=== PATIENT | female | born 1960 | race Caucasian/White ===

== ENCOUNTER 2024-01-04 14:04 | Outpatient (CLI) | payer OTHER, SELFPAY ==
--- NOTE | ~2024-01-04 | CT_ITS ---
EXAMINATION: CT abdomen pelvis wo con DATE: 01/04/2024 15:04 INDICATION: Rectal pain TECHNIQUE: Computed tomography (CT) of the abdomen and pelvis was performed without intravenous contr ast. Automated exposure control and iterative reconstruction technique were employed. The dose-length product was 357.46 mGy-cm. COMPARISON: None. FINDINGS: Lower thorax: Unremarkable Liver: Normal. Biliary/Gallbladder: Gallbladder is absent. Intra and extrahepatic bile duct dilation. The common amya t measures up to 2.2 cm. Pancreas: No mass or duct dilation. Spleen: Normal. Adrenals:No mass. Kidneys: No suspicious mass, obstructing stone, or hydronephrosis. GI tract: No small or large bowel dilation. Large volume of colonic fecal material. Appendix not visu alized. Mesentery/Peritoneum: No ascites, mass, or free air. Retroperitoneum: No mass. Pelvis: Uterus and ovaries not visualized. Normal urinary bladder. Soft Tissues: Soft tissues and body wall unremarkable. Left lower abdominal wall surgical clips. Bones: No acute osseous finding. Interbody devices at L4-5 and L5-S1. Laminectomy defects at L4 and L5. Paravertebral surgical clips. IMPRESSION: Marked intra and extrahepatic bile duct dilation, could represent chronic dilation versus acute obstr uction. Correlate with biliary labs. Comparison to outside studies would be helpful. Otherwise, consi tommy MRCP, particularly if biliary labs are abnormal. Large volume of colonic fecal material, correlate for clinical findings of constipation. Reviewed, dictated and finalized at [facility] [place]. IMPRESSION: Marked intra and extrahepatic bile duct dilation, could represent chronic dilat ion versus acute obstruction. Correlate with biliary labs. Comparison to outsid e studies would be helpful. Otherwise, consider MRCP, particularly if biliary l abs are abnormal. Large volume of colonic fecal material, correlate for clinical findings of cons tipation.
== END 2024-01-04 14:05 | disposition home or self-care (01) ==
LOC: ANHIMG 14:08
PROVIDERS: PCP Internal Medicine; Visit Provider Internal Medicine Gastroenterology
DX: K62.89 Other specified diseases of anus and rectum (principal); K83.8 Other specified diseases of biliary tract
CPT/HCPCS: 74176

== ENCOUNTER 2024-09-16 11:15 | Outpatient (RCR) | payer OTHER, SELFPAY ==
--- NOTE | 2024-08-30 14:27 | OPREHPOC ---
Outpatient Therapy Plan of Care This is a Multidisciplinary Plan of Care that may contain components documented by all disciplines (PT, OT, and ST.) PT Problem 1 PT Problem #1 Knowledge Deficit PT Goal 1 Goal / Goal Update 1. Patient will perform independent HEP Target Visit 2 PT Problem 2 PT Problem #2 Pain PT Goal 1 Goal / Goal Update 1. Patient will report perianal pain 5/10 highest 2. Patient will be able to walk her dog without being limited by pain Target Visit 4 PT Problem 3 PT Problem #3 Impaired Functional ADLs PT Goal 1 Goal / Goal Update 1. Patient will void no more than 10 times a day and 1 time at night 2. Patient able to hold at least 30 minutes before voiding Target Visit 4
--- NOTE | 2024-08-30 14:27 | PTOPEVAL1 ---
Assessment and note entered by Michelle Ingram DPT Evaluation Information Assessment Status Evaluation Diagnosis k62.89 ICD-10 Condition Codes (PT) Weakness R53.1,Pelvic and perineal pain R10.2 Subjective Information Pt has a diagnosis of anal pain and has a history of chronic constipation. Significant pain started back in January. Has been diagnosed with anal fissures and states she is noticing a lot of pelvic edema. Unsure if the current anal fissures will be surgically repaired (has had that done in the past). Tried Botox injections in May. Does sitz baths multiple times a day. Has to hold perineal pressure to have BM. Voids every 5 minutes and is up 6-7 times at night. Unable to hold urge to void more than a few seconds. No pain with urination. Typically is not getting urinary incontinence, 1 time recently with a sneeze. BM twice a day with soft stool, denies pain with BM. Does not hold urge for BM at all and does not get fecal incontinence. Pain is constantly 10/10, uses ice packs a lot and is hardly doing any activities. Patient states she cannot even walk her small dog. Pt is not sexually active but previously has had pain with intercourse. Pt had 1 and delivery with vaginal delivery and episiotomy, no other complications. Complete hysterectomy in . Pt has IBS and diverticulitis. Patient goal: not pee as frequently and reduce pain. Returns to [facility] later this month. Reported Pain Level Pain Score 10: Self Report Assessment PT Clinical Summary The patient is presenting to skilled therapy with extensive history of anal pain. She also reports significantly increased urinary frequency and difficulty holding urge to void. She presents with decreased pelvic floor strength and endurance which are contributing to her symptoms. The patient is limited with nearly all activities at home due to her pain. She will highly benefit from skilled therapy to address these impairments in order to reduce pain and urination and restore function. Plan of Care Interventions Electrical Stimulation,Gait Training,Hot Pack/Cold Pack,Manual Therapy,Neuro Re-education,Patient/ Caregiver Education,Therapeutic Activities, Therapeutic Exercise PT Services Indicated Yes Treatment Frequency and 1 time a week for 4 visits Duration These treatments will address the objective and functional deficits as defined above. The patient will be advanced safely and appropriately in order for the patient to progress towards his/her prior level of function. Additional exercises will be introduced and as well as a comprehensive home exercise program upon discharge, if needed, ?to ensure carryover of functional gains achieved in the clinic. This treatment plan has been reviewed and agreement upon by the patient.
--- NOTE | 2024-09-28 10:06 | PCPTNOTE ---
Patient called appointment 09/28/24 in preparation for surgery 10/04/24.
--- NOTE | 2024-10-11 13:11 | PTOPDC ---
Assessment and note entered by Michelle Ingram DPT Evaluation Information Assessment Status Discharge - Pt Not Present Diagnosis k62.89 ICD-10 Condition Codes (PT) Weakness R53.1,Pelvic and perineal pain R10.2 Subjective Information - Assessment PT Clinical Summary Patient is scheduled to have surgery. Her case will be discharged this date. Plan of Care PT Services Indicated No
== END 2024-10-11 16:51 | disposition home or self-care (01) ==
LOC: ANHPT 11:15
PROVIDERS: PCP Internal Medicine
DX: K62.89 Other specified diseases of anus and rectum (principal)
CPT/HCPCS: 97014; 97112; 97140; 97162; 97530; G0283

== ENCOUNTER 2025-01-25 20:50 | Emergency (ER) | payer OTHER, SELFPAY ==
--- OUTSIDE RECORDS SUMMARY | 2025-01-18 04:55 | XMS_ITS | Continuity of Care Document ---
Author Organization [employer] [place] Address [address] [place] [address] Phone Care Team Providers Care Promotion Manager Name Role Phone Annamarie Gonzalez DO Unavailable Unavailable Allergies, Adverse Reactions, Alerts Substance Reaction Status Criticality duloxetine Active No Information DULOXETINE HCL Fatigue Active No Informatio n oxaprozin Nausea / Vomiting Active No Informa tion PENICILLIN V POTASSIUM Active No In formation naproxen Active No Information Iodinated Contrast Media Active No Information adhesive Active No Information nalbuphine Active No Information ampicillin Active No Information PENICILLIN Active No Information Medications Medication Instructions Dosage Effective Dates (start - stop) Status Comments albuterol sulfate HFA 90 mcg/actuation aerosol inhaler inhale 2 puff by inhalation route every 4 - 6 hours as needed 180 MCG - Active Levothyroxine Sodium 75 MCG Oral Tablet TAKE 1 TABLET BY MOUTH ONCE DAILY ON AN EMPTY STOMACH 30 MINUTES BEFORE BREAKFAST - Active tiZANidine HCl 2 MG Oral Tablet TAKE 1 TO 2 TABLETS BY MOUTH EVERY 8 HOURS NEEDED NOT TO EXCEED 3 DOSES IN 24 HOURS - Active Simvastatin 20 MG Oral Tablet TAKE 1 TABLET BY MOUTH ONCE DAILY IN THE EVENING - Active gabapentin 100 mg capsule TAKE 1 TO 3 CAPSULES BY MOUTH ONCE DAILY AT BEDTIME - Active zolpidem 10 mg tablet TAKE 1 TABLET BY MOUTH ONCE DAILY AT BEDTIME - Active Miralax 17 gram/dose oral powder take (17G) by oral route every day mixed with 8 oz. water, juice, soda, coffee or tea 17 G - Active amlodipine 5 mg tablet take 1 tablet by oral route every day 5 MG - Active Ibsrela 50 mg tablet take 1 tablet by or al route 2 times every day 50 MG - Active Stool Softener 100 mg capsule take 1 capsule by oral route every day at bedtime as needed 100 MG - Active sumatriptan 25 mg tablet take 1 tablet by oral route once with fluids as early as possible after the onset of a migraine attack;may repeat after 2 hours if headache returns, not to exceed 200mgin 24hrs 25 MG - Active Xtampza ER 13.5 mg capsule sprinkle take 1 capsule by oral route every 12 hours 13.5 MG - Active Procedures Procedure Date OFFICE [id number] MED LIST DOCD IN RD CBC, INC PLATELETS AND DIFFERENTIAL COMPREHEN METABOLIC PANEL [facility] [address] 5 CREATINE KINASE, TOTAL (CPK,CK) 025 HEMOGLOBIN A1C HGA1C, GLYCO LIPID PANEL RBC SED RATE, AUTOMATED THYROID STIMULATION HORMONE(TSH) 2024 FALL RISK ASSESSMENT DOC'D PRES/ABSN URINE INCON ASSESS Depression screen annual Clin depression screen doc Brief Emotional/Behavioral A ssessment, With Scoring/Doct, Per Stndrd Instrument URINALYSIS, DIPSTICK (UA) - Office Lab M ROUTINE VENIPUNCTURE NE PREVENTATIVE-EST: 65 & OVER BODY MASS INDEX DOCD SYST BP LT 130 MM HG DIAST BP < 80 MM HG CBC, INC PLATELETS AND DIFFERENTIAL COMPREHEN METABOLIC PANEL [facility] [address] 4 HEMOGLOBIN A1C HGA1C, GLYCO THYROID STIMULATION HORMONE(TSH) 2023 FERRITIN LEVEL URINALYSIS, DIPSTICK (UA) - Office Lab O ROUTINE VENIPUNCTURE NE OFFICE [id number] Visit Complexity Inherent To E/M 2023 BODY MASS INDEX DOCD SYST BP GE 130 - 139MM HG DIAST BP < 80 MM HG OFFICE [id number] Visit Complexity Inherent To E/M 2023 BODY MASS INDEX DOCD SYST BP LT 130 MM HG DIAST BP < 80 MM HG CBC, INC PLATELETS AND DIFFERENTIAL COMPREHEN METABOLIC PANEL CMP HEMOGLOBIN A1C HGA1C, GLYCO LIPID PANEL THYROID STIMULATION HORMONE(TSH) 2023 URINALYSIS, REFLEX (UA) FREE T4 (FT4) Brief Emotional/Behavioral A ssessment, With Scoring/Doct, Per Stndrd Instrument Depression screen annual Clin depression screen doc ROUTINE VENIPUNCTURE [place] OFFICE [id number] BODY MASS INDEX DOCD SYST BP GE 130 - 139MM HG DIAST BP < 80 MM HG URINALYSIS, DIPSTICK (UA) - Office Lab M Advance Directives Directive Yes / No Effective Date File Name Life Support Not Answered N/A N/A Intubation Not Answered N/A N/A Antibiotics Not Answered N/A N/A IV Fluid Support Not Answered N/A N/A Tube Feed Not Answered N/A N/A Other Directive N/A N/A WARNING:The information contained in this section is historical and is provided for information only and does not constitute a legal document or any assurance that the information is still accurate. Please verify the information with the sanchez of the legal document before using it for clinical purposes. Encounters Encounter Description Practice Location Reason(s) For Visit Diagnoses Date Provider Providers Copied on Encounter [facility] [address] [place], [address], [place], [place], [id number] , [place] tel: [phone] [facility] No Information 5 Glen Annamarie. [address] [place] [address], [id number] , [place]. tel: [phone] [facility], [address], [place], [place], [address] , [place] tel:[phone] [facility] No Information - 5 Carlos Annamarie. [address] [place] [address], [id number] , [place]. tel: [phone] [facility], [address], [place], [place], [address] , [place] tel: [phone] [facility] No Information 5 Carlos Annamarie. [address] [place] [address], [id number] , [place]. tel: [phone] [facility], [address], [place], [place], [address] , [place] tel:[phone] [facility] No Information 5 Alli Gaylin. [address] [place] [address], [address], [place]. tel: [phone] [facility], [address], [place], [place], [address] , [place] tel: [facility] No Information - 5 Glen Annamarie. [address] [place] [address], [id number] , [place]. tel: [phone] [facility], [address], [place], [place], [id number] , [place] tel: [phone] [facility] No Information 0 9- 5 Glen Annamarie. [address] [place] [address], [id number] , [place]. tel: [phone] [facility], [address], [place], [address] , tel: [phone] [facility] No Information 5 Carlos De Luna. [address] [place] [address], [id number] , [place]. tel: [phone] OFFICE [id number]-UKA-VJ PANDED [facility], [address], [place], [place], [address] , tel: [phone] [facility] Other specified diseases of anus and rectum Jul- 5 Staton Sowmya. [address] [place] [address], [id number] , [place]. tel: [phone] Referring Provider: Annamarie Jasmine, [address] [place] [address], [address] . tel:[phone] [facility] [address], [address], [place], [place], [address] , tel: [phone] [facility] No Information 5 Hernán Montero. [address] [address], [place], [place], [id number] , . tel: [phone] Referring Provider: Annamarie Jasmine, [address] [place] [address], [address] . tel:[phone] PREVENTATIVE -EST: 65 & OVER [facility], [address], [place], [place], [address] , tel: [phone] [facility] 3 month appt (chief complaint)c hronic conditions (chief complaint)p reventive exam (chief complaint)C hronic Conditions (chief complaint) Body mass index [BMI] 26.0-26.9, adultEncntr for general adult medical exam w/o abnormal findingsImpaired fasting glucoseEssential (primary) hypertensionOther hyperlipidemiaMajo r depressive disorder, recurrent, moderateHypothyroi dism, unspecifiedOther specified diseases of anus and rectumLocalized edemaLeukocytes in urine 5 Carlos De Luna. [address] [place] [address], [id number] , [place]. tel: [phone] Referring Provider: Annamarie Jasmine, [address] [place] [address], [address] . tel:[phone] [facility], [address], [place], [place], [address] , [place] tel: [phone] [facility] No Information 5 Carlos De Luna. [address] [place] [address], [id number] , [place]. tel: [phone] [facility] [address], [address], [place], [place], [address] , [place] tel: [phone] [facility] No Information 4 Hernán Montero. [address], [id number] , . tel: [phone] Referring Provider: Emory Carson, [address] [place] [address], [address]. tel:[phone] OFFICE [id number]-GV [facility], [address], [place], [place], [id number] , [place] tel: [phone] [facility] 4 month (chief complaint)C hronic Conditions (chief complaint)c hronic conditions (chief complaint) Major depressive disorder, recurrent, moderateLow back pain, unspecifiedOther hyperlipidemiaInso mnia, unspecifiedEssenti al (primary) hypertensionImpair ed fasting glucoseRectal painVaginal painDilated bile ductRLS (restless legs syndrome) 4 Alli Cat. [address] [place] [address], [address], [place]. tel: [phone] Referring Provider: Annamarie Jasmine, [address] [place] [address], [address] . tel:[phone] [facility], [address], [place], [place], [address] , [place] tel: [phone] [facility] Internal hemorrhoids 4 Carlos De Luna. [address] [place] [address], [id number] , [place]. tel: [phone] [id number], [address], [place], [place], [id number] , [place] tel: [phone] [facility] 1 Month (chief complaint)C hronic Conditions (chief complaint) Body mass index [BMI] 25.0-25.9, adultLow back pain, unspecifiedMajor depressive disorder, recurrent, moderateGeneralize d anxiety disorderEssential (primary) hypertensionInsomn ia, unspecifiedFemale genital prolapse, unspecified typePersonal history of other endocrine, nutritional and metabolic disease 4 Alli Cat. [address] [place] [address], [address], [place]. tel: [phone] Referring Provider: Annamarie Jasmine, [address] [place] [address], [address] . tel:[phone] [facility], [address], [place], [place], [id number] , [place] tel: [phone] [facility] Female genital prolapse, unspecified type 4 Alli Cat. [address] [place] [address], [address], [place]. tel: [phone] [facility] [address], [address], [place], [id number] , [place] tel: [phone] [facility] Essential (primary) hypertensionHypoth yroidism, unspecifiedGeneral ized anxiety disorderImpaired fasting glucose 4 Hernán Montero. [address] [address], [place], [place], [id number] , [place]. tel: [phone] Referring Provider: Emory Carson, [address] [place] [address], [place], [address]. tel:[phone] OFFICE [id number]-[id number]-MD MP-HIGH [facility], [address], [place], [place], [address] , tel: [phone] [facility] [place] New pt (chief complaint)C hronic Conditions (chief complaint) Body mass index [BMI] 25.0-25.9, adultEssential hypertensionAcquir ed hypothyroidismHype rlipidemia, unspecified hyperlipidemia typeOther insomniaEncounter for weight managementChronic midline low back pain, unspecified whether sciatica presentOther chronic painMigraine with aura and without status migrainosus, not intractableModerat e major depressionGAD (generalized anxiety disorder)Impaired fasting glucosePain with urinationHistory of obesity 0 6- 4 Alli Cat. [address] [place] [address], [address], . tel: [phone] Referring Provider: Annamarie Jasmine, [address] [place] [address], [address] . tel:[phone] [facility], [address], [place], [place], [address] , tel: [phone] [facility] Valentina Urinary frequencyUrinary urgencyBurning with urination 0 4 Carlos De Luna. [address] [place] [address], [id number] , [place]. tel: [phone] Referring Provider: Annamarie Jasmine, [address] [place] [address], [address] . tel:[phone] Family History Family Member Type Diagnosis Age At Onset Mother Problem Diabetes mellitus Mother Problem Cardiovascular disease Father Problem Stroke Problem Family history of Irritable bowel syndrome Mother Problem Cancer, lung Mother Problem Migraine headaches Father Problem Cardiovascular disease Mother Problem Depression Mother Problem Asthma Father Problem Depression Problem Family history of Arthritis Father Problem Hypercholesterolemia Sister Problem Depression Problem Family history of Diabetes m ellitus Mother Problem Eczema Father Problem Learning disability Sister Problem Eczema Sister Problem Obesity Problem Family history of Stroke Mother Problem Hypertension Immunizations Vaccine Date Status Comments Moderna (Bivalent Booster) C OVID Vac, 50mgc/0.5 mL, 18+ years administered Note: [facility] ; Source: Other Provider Moderna (Low Dose) COVID19 Vaccine, 0.25mL per dose, booster dose administered Note: [facility] ; Source: Other Provider Moderna COVID19 Vaccine, 0.5 mL per dose, 2 doses, administered 28 days apart administered Note: [facility] ; Source: Other Provider Moderna COVID19 Vaccine, 0.5 mL per dose, 2 doses, administered 28 days apart administered Note: [facility] ; Source: Other Provider Payers Payer name Insurance type Covered constitution party ID Nasir gan(s) [employer] [id number] Social History Type Description Quantity Date Captured Comments Alcohol Use Details Unknown Caffeine Use Details Unknown Tobacco Use Status No Information Smoking Status No Information Sex Female Sexual Orientation Straight or heterosexual Gender Identity Female Chief Complaint And Reason For Visit No Information Reason For Referral Reason For Referral No Information Plan Of Treatment Date Type Action Status Goal Dietary management education , guidance, and counseling completed Goal Dietary management education , guidance, and counseling completed Goal Dietary management education , guidance, and counseling completed Referral Referred To: Sara Kelley [facility] [address] [place], [phone] Ordered: Referrals: Gastroenterology. Sara Kelley. Evaluation/diagnostic/treatment - Level 3 ordered Referral Referred To: Chris Andrea [id number], [phone] Ordered: Referrals: Urology. Chris Andrea. Evaluation/diagnostic/treatment - Level 3 Appointment date/timeframe: 01/20/2024 ordered History Of Present Illness Encounter Date Complaint History Of Prese nt Illness preventive exam Associated sympt oms include sleep disturbances. Patient does not take calcium. Patient does not take Vitamin D. Patient does not take multivitamins. Patient does not take Folic acid. The patient no longer uses tobacco. The patient does drink alcohol. 3 month appt pt due for:Fall risk/urinary incontinence information provided to patient Adv care planning - pt will bring copy of LW/POAColonoscopy - done with Dr Kelley on one density - pt denies recentpt needs Yearly physical exam before August 2024.Recent visits:Dr Kelley - Dr Mcgarry - [facility] - 3 weeks agoDr Rashid - GI - FebFuture appt:Lizzy Barreto - pain management - MarchVaccinations due:COVID - see scanned vaccine recordCOVID booster - see scanned vaccine recordFlu - pt refusesPneumo - pt refusesTD/TDAP - pt denies recentSHINGRIX - pt refusesRSV - pt refusesOutstanding referrals:n/apt reports bilateral swelling of ankles and hands. pt verbalized I have been swelling since the procedure. pt states it has been worsening.pt also reports rectal pain since procedure about 3 weeks ago. pt states it has been worsening. chronic conditions *See Chronic Conditions HPI Chronic Conditions *See Chronic Conditions HPI 4 month She is here for 4-month follow-up. She moved here for appointment to discuss some acute issues she is having.She is under the care of Dr. Kelley for rectal pain.She is getting Ibsrela prescribed twice a day she is also prescribed nitro cream, nifedipine and lidocaine to the rectum without relief. She has also tried sitz baths. She continues to have a burning sensation to the urethra. She has not seen a turn out.GI notes indicate that CT of the abdomen pelvis from December showed marked intra and extrahepatic bile ductal dilatation chronic versus obstructive and recommended MRCP but she declined MRI due to claustrophobia. She continues following up with pain management who prescribes Xtampza for chronic low back pain.GI recommended diverticular diet as well as colonoscopy.She is scheduled for colonoscopy on the .She was taking Ozempic weekly but stopped after she hit her goal weight. chronic conditions *See Chronic Conditions HPI Chronic Conditions *See Chronic Conditions HPI 1 Month Patient is here for 1 month follow-up after establishing care last month. At her last office visit we started duloxetine 30 mg to help with her depression, anxiety and chronic pain.She felt like she was stuck in mud after 4th day of taking duloxetine.Weaned off medicationSymptoms dramatically improved after stopping.Urology 11/10/23 10:30 in [place]-For genital prolapse Chronic Conditions *See Chronic Conditions HPI Chronic Conditions *See Chronic Conditions HPI New pt Patient is here to establish care with a new PCP.Previously a patient of Dr. Gonzalez seen within 6 months.PMH: History of obesity h ypertension, hyperlipidemia, chronic back pain, migraine, major depression, anxiety, obesity, insomniaPSH: Back surgery, breast biopsy, cataract, cholecystectomy, D&C, hysterectomy, tubal ligationSocial: . disabled since 1998.1 grown [place], [place]. no etoh. thought about medical MJ but not allowed with pain management.Family history: Mother a sthma, CAD, lung cancer, depression, diabetes, eczema, high blood pressure, migraines, age 77Father c oronary artery disease, CVA, depression, hyperlipidemia, learning disability, age 83Sister with unknown bone cancer. Still alive, depression, diabetes, obesityGrandparents with CVA, diabetes, IBS and arthritisTests:Colonoscopy with Dr. Kelley 1 to 2 years ago. Had 1 polypCardiac stress test 2009. NormalMammogram Augustap- NAvaccines:declines shingles. has had flu and covid.pain with urinationtried vagisil.no redness or discharge.urethra feels swollen.burning feeling but doesn't burn with urination. urine culture done before new pt appt was negative. Functional Status Date Functional Assessmen t No Information Instructions Date Instruction Additional Infor dakotah I would recommend oswaldo hernandez with Dr. Mcgarry regarding the ongoing rectal painI am going to give you a steroid to help with the inflammation to see if it helps with the paincall Dr. kelley to follow up int he office in the next few weeksstop taking the ibuprofen Related to Other specified diseases of anus and rectum your depression and anxiety levels are much higher then normal which is likely due to the uncontrolled pain you are experiencing Related to Major depressive disorder, recurrent, moderate levels will be check edcontinue with the current medication Related to Hypothyroidism, unspecified levels will be check edcontinue with the current medication Related to Other hyperlipidemia levels will be check edcontinue with the current diet and exercise Related to Impaired fasting glucose routine labs checked todaysee below for details Related to Encntr for general adult medical exam w/o abnormal findings your blood pressure is stableno changes recommended Related to Essential (primary) hypertension wear compression soc ks will helpstop the ibuprofen stay well hydrated Related to Localized edema Urinary Incontinence Fall Risk Prevention Dietary management e ducation, guidance, and counseling Related to Body mass index (BMI) 26.0-26.9, adult Prescribed activity/exercise edu cation Related to Body mass index (BMI) 26.0-26.9, adult Disease process I am going to draw a ferritin level to see if this could be explaining the restless leg syndrome.Call with any questions or concernsLabs todayFlu shot in in 3 months Related to RLS (restless legs syndrome) I am drawing a compr ehensive metabolic panel to be sent to the gastrointestinal doctor. Related to Dilated bile duct I am sending out a v aginal cream.You will start off using this daily for 2 weeks then twice a week thereafter. We will see if this helps with your symptoms. Related to Vaginal pain continue on current medications prescribed by Dr. Kelley.colonoscopy scheduled on Related to Rectal pain A1c todayyou are off ozempic at this time Related to Impaired fasting glucose Blood pressure manag ed on current medication. Related to Essential (primary) hypertension Continue on current medication. Call for refills. Related to Insomnia, unspecified Continue close follo w-up with pain management. Related to Low back pain, unspecified Continue on current medication. Levels are monitored. Liver enzymes checked today Related to Other hyperlipidemia you did not tolerate duloxetine and are not interested in genesight.if your depression worsens or changes please let me know and we can try something else Related to Major depressive disorder, recurrent, moderate Disease process We will see if there are any issues with continuing Ozempic. Related to Personal history of other endocrine, nutritional and metabolic disease Look into over-the-c ounter Orajel.Call if this worsens or changes. 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 Related to Female genital prolapse, unspecified type You did not tolerate the duloxetine.I will order GeneSight testing to see if there is medication that you would benefit from. Handout given Related to Major depressive disorder, recurrent, moderate As above. Related to Gener alized anxiety disorder Continue on current medication and follow with pain management monthly. Related to Low back pain, unspecified Blood pressure is we ll-managed on current medication. Related to Essential (primary) hypertension Dietary management e ducation, guidance, and counseling Related to Body mass index (BMI) 25.0-25.9, adult Disease process Giving encouragement to exercise Related to Body mass index (BMI) 25.0-25.9, adult Your urine did not s how any infection. You can stop the nitrofurantoin.I sent out a steroid cream to apply to the area. Do not use this for more than 2 weeks. If it is still an issue I will have to take a look at the area.Call with any questions or concernsCBC, CMP, A1c, lipids, TSH, UA todayReturn in 1 monthI will try to get the records from Dr. Kruger. Related to Pain with urination We will check A1c for diabetes. Related to Impaired fasting glucose As above. Take 30 mg of duloxetine once a day. Related to GABI (generalized anxiety disorder) As above. Related to Other chronic pain Please call if your migraines significantly worsen. Related to Migraine with aura and without status migrainosus, not intractable As above. If you fee l that your depression significantly worsens or changes in any way let me know. Continue your efforts with staying active and eating a well-balanced diet. Related to Moderate major depression Continue close follo w-up with pain management.Given the anxiety and depression I am going to start you on 30 mg of duloxetine for you to take once a day. Hopefully this will help optimize your mood and pain. Related to Chronic midline low back pain, unspecified whether sciatica present Continue on current medication and let me know if you need refills. Related to Other insomnia If we run into any i ssues with the 0.25 mg of Ozempic we may have to switch to Wegovy.You have 1 refill left. Related to Encounter for weight management Will check thyroid levels today. Related to Acquired hypothyroidism Continue on current medication. Levels will be checked Related to Hyperlipidemia, unspecified hyperlipidemia type blood pressure is ma naged on current medication. Related to Essential hypertension Dietary management e ducation, guidance, and counseling Related to Body mass index (BMI) 25.0-25.9, adult Giving encouragement to exercise Related to Body mass index (BMI) 25.0-25.9, adult Disease process Assessments Type Assessment Date No Information Patient Care Teams Name Effective Dates (start - stop) Status Members No Information
--- OUTSIDE RECORDS SUMMARY | 2025-01-18 04:55 | XMS_ITS | Continuity of Care Document ---
Author Organization [facility] [place] Address [address] [place] [address] Phone Care Team Providers Care Gang Vibrator Operator Name Role Phone Annamarie Gonzalez DO Unavailable [...] MG - Active Procedures Procedure Date OFFICE [id number] MED LIST DOCD IN RD CBC, INC PLATELETS AND DIFFERENTIAL COMPREHEN METABOLIC PANEL [facility] 5 CREATINE KINASE, TOTAL (CPK,CK) 025 HEMOGLOBIN A1C HGA1C, GLYCO LIPID PANEL RBC SED RATE, AUTOMATED THYROID STIMULATION HORMONE(TSH) 2024 FALL RISK ASSESSMENT DOC'D PRES/ABSN URINE INCON ASSESS Depression screen annual Clin depression screen doc Brief Emotional/Behavioral A ssessment, With Scoring/Doct, Per Stndrd Instrument URINALYSIS, DIPSTICK (UA) - Office Lab M ROUTINE VENIPUNCTURE TX PREVENTATIVE-EST: 65 & OVER BODY MASS INDEX DOCD SYST BP LT 130 MM HG DIAST BP < 80 MM HG CBC, INC PLATELETS AND DIFFERENTIAL COMPREHEN METABOLIC PANEL [facility] 4 HEMOGLOBIN A1C HGA1C, GLYCO THYROID STIMULATION HORMONE(TSH) 2023 FERRITIN LEVEL URINALYSIS, DIPSTICK (UA) - Office Lab O ROUTINE VENIPUNCTURE TX OFFICE [id number] Visit Complexity Inherent To E/M 2023 BODY MASS INDEX DOCD SYST BP GE 130 - 139MM HG DIAST BP < 80 MM HG OFFICE [id number] Visit Complexity Inherent To E/M 2023 BODY [...] depression screen doc ROUTINE VENIPUNCTURE [place] OFFICE [id number]-[id number]-HIGH BODY MASS INDEX DOCD SYST BP GE [...] Copied on Encounter [facility] [place], [address], [place], [place], [id number] , [place] tel: [phone] [facility] No Information 5 [place] Annamarie. [address] [place] [address], [id number] , [place]. tel: [phone] [facility], [address], [place], [place], [address] , [place] tel:[phone] [facility] No Information - 5 Carlos Annamarie. [address] [place] [address], [id number] , [place]. tel: [phone] [facility], [address], [place], [place], [address] , [place] tel: [phone] [facility] No Information 5 Carlos Annamarie. [address] [place] [address], [id number] , [place]. tel: [phone] [facility], [address], [place], [place], [address] , [place] tel:[phone] [facility] No Information 5 Alli Gaylin. [address] [place] [address], [address], [place]. tel: [phone] [facility], [address], [place], [place], [id number] , [place] tel: [facility] No Information - 5 [place] Annamarie. [address] [place] [address], [id number] , [place]. tel: [phone] [facility], [address], [place], [place], [address] , [place] tel: [phone] [facility] No Information 0 9- 5 [place] Annamarie. [address] [place] [address], [id number] , [place]. tel: [phone] [facility], [address], [place], [address] , tel: [phone] [facility] No Information 5 Carlos De Luna. [address] [place] [address], [id number] , [place]. tel: [phone] OFFICE [id number]-HKE-IX PANDED [facility], [address], [place], [place], [address] , tel: [phone] [facility] Other specified diseases of anus and rectum Jul- 5 [place] Swomya. [address] [place] [address], [id number] , [place]. tel: [phone] Referring Provider: Annamarie Jasmine, [address] [place] [address], [address] . tel:[phone] [facility], [address], [place], [place], [address] , tel: [phone] [facility] No Information 5 Hernán Montero. [address] [address], [place], [place], [address] , . tel: [phone] Referring Provider: Annamarie Jasmine, [address] [place] [address], [address] . tel:[phone] PREVENTATIVE -EST: 65 & OVER [facility], [address], [place], [place], [address] , tel: [phone] [facility] 3 month appt (chief complaint)c hronic conditions (chief complaint)p reventive exam (chief complaint)C hronic Conditions (chief complaint) Body mass index [BMI] 26.0-26.9, adultEncntr for general adult medical exam w/o abnormal findingsImpaired fasting glucoseEssential (primary) hypertensionOther hyperlipidemiaMajo r depressive disorder, recurrent, moderateHypothyroi dism, unspecifiedOther specified diseases of anus and rectumLocalized edemaLeukocytes in urine 5 Carlos D eLuna. [address] [place] [address], [id number] , [place]. tel: [phone] Referring Provider: Annamarie Jasmine, [address] [place] [address], [address] . tel:[phone] [facility], [address], [place], [place], [address] , [place] tel: [phone] [facility] No Information 5 Carlos De Luna. [address] [place] [address], [id number] , [place]. tel: [phone] [facility], [address], [place], [place], [address] , [place] tel: [phone] [facility] No Information 4 Hernán Montero. [address], [id number] , . tel: [phone] Referring Provider: Emory Carson, [address] [place] [address], [address]. tel:[phone] OFFICE MOFFV-DWC-EV [facility], [address], [place], [place], [address] , [place] tel: [phone] [facility] 4 month (chief complaint)C hronic Conditions (chief complaint)c hronic conditions (chief complaint) Major depressive disorder, recurrent, moderateLow back pain, unspecifiedOther hyperlipidemiaInso mnia, unspecifiedEssenti al (primary) hypertensionImpair ed fasting glucoseRectal painVaginal painDilated bile ductRLS (restless legs syndrome) 4 Alli Cat. [address] [place] [address], [address], [place]. tel: [phone] Referring Provider: Annamarie Jasmine, [address] [place] [address], [address] . tel:[phone] [facility], [address], [place], [place], [address] , [place] tel: [phone] [facility] Internal hemorrhoids 4 Carlos De Luna. [address] [place] [address], [id number] , [place]. tel: [phone] [facility], [address], [place], [place], [address] , [place] tel: [phone] [facility] 1 Month (chief complaint)C hronic Conditions (chief complaint) Body mass index [BMI] 25.0-25.9, adultLow back pain, unspecifiedMajor depressive disorder, recurrent, moderateGeneralize d anxiety disorderEssential (primary) hypertensionInsomn ia, unspecifiedFemale genital prolapse, unspecified typePersonal history of other endocrine, nutritional and metabolic disease 4 Alli Cat. [address] [place] [address], [address], [place]. tel: [phone] Referring Provider: Annamarie Jasmine, [address] [place] [address], [address] . tel:[phone] [facility], [address], [place], [place], [address] , [place] tel: [phone] [facility] Female genital prolapse, unspecified type 4 Alli Cat. [address] [place] [address], [address], [place]. tel: [phone] [facility], [address], [place], [place], [address] , [place] tel: [phone] [facility] Essential (primary) hypertensionHypoth yroidism, unspecifiedGeneral ized anxiety disorderImpaired fasting glucose 4 Hernán Montero. [address] [address], [place], [place], [id number] , [place]. tel: [phone] Referring Provider: Emory Carson, [address] [place] [address], [place], [address]. tel:[phone] OFFICE [id number]-VHK-LR MP-HIGH [facility], [address], [place], [place], [address] , tel: [phone] [facility] [place] New pt (chief complaint)C hronic Conditions (chief complaint) Body mass index [BMI] 25.0-25.9, adultEssential hypertensionAcquir ed hypothyroidismHype rlipidemia, unspecified hyperlipidemia typeOther insomniaEncounter for weight managementChronic midline low back pain, unspecified whether sciatica presentOther chronic painMigraine with aura and without status migrainosus, not intractableModerat e major depressionGAD (generalized anxiety disorder)Impaired fasting glucosePain with urinationHistory of obesity 0 6- 4 Alli Cat. [address] [place] [address], [address], . tel: [phone] Referring Provider: Annamarie Jasmine, [address] [place] [address], [address] . tel:[phone] [facility], [address], [place], [place], [address] , tel: [phone] [facility] Valentina Urinary frequencyUrinary urgencyBurning with urination 0 4 Carlos De Luna. [address] [place] [address], [id number] , [place]. tel: [phone] Referring Provider: Annamarie Jasmine, [address] [place] [address], [address] . tel:[phone] Family History Family Member Type Diagnosis Age [...] Vac, 50mgc/0.5 mL, 18+ years administered Note: [facility] pharmacy ; Source: Other Provider Moderna (Low [...] Provider Payers Payer name Insurance type Covered democrat ID Nasir gan(s) Anki [id number] Social History Type Description Quantity Date Captured [...] counseling completed Referral Referred To: Sara Kelley [facility] [address] [place], [phone] Ordered: Referrals: Gastroenterology. Sara Kelley. Evaluation/diagnostic/treatment - Level 3 ordered Referral Referred To: Crhis Andrea [address], [phone] Ordered: Referrals: Urology. Chris Andrea. Evaluation/diagnostic/treatment - [...] the urethra. She has not seen a it trainee.GI notes indicate that CT of the abdomen [...] dramatically improved after stopping.Urology 11/10/23 10:30 in [place]-For genital prolapse Chronic Conditions *See Chronic Conditions [...] since 1998.1 grown [place], [place]. no etoh. thought about medical [...] changes. Related to Insomnia, unspecified Up with uro-NETWORK SYSTEMS ADMINISTRATOR.Call with any questions or concernsNo labs todayReturn [...]
--- NOTE | ~2025-01-25 | CT_ITS ---
CT ABDOMEN AND PELVIS WITHOUT CONTRAST Clinical History: rectal pain, recent sphincterotomy Comparison: 01/04/2024 Technique: Unenhanced axial images lung bases to symphysis pubis Coronal, sagittal reformats CT images acquired with automatic exposure control for dose reduction DLP: 369 mGy-cm Findings: Without intravenous contrast, sensitivity for detecting visceral parenchymal abnormalities decreased. Lung bases: Clear. Visualized heart and pericardium: Unremarkable. Liver: Mild intrahepatic biliary ductal dilatation. Gallbladder: Removed. Spleen: Unremarkable. Pancreas: Unremarkable. Adrenal glands: Unremarkable. Kidneys: Right kidney- No hydronephrosis. No renal stones. Left kidney- No hydronephrosis. No renal stones. Distal esophagus/stomach: Unremarkable. Small bowel loops: Normal caliber and wall thickness. Colon: Normal caliber and wall thickness. Appendix not seen. Moderate volume stool. Nodes: No enlarged nodes. Peritoneum: No ascites. No free intraperitoneal air. Urinary bladder: Unremarkable. Uterus: Removed. Adnexa: No masses. Bones: No acute bony abnormality. Soft tissues: Unremarkable. Unopacified abdominal aorta: No aneurysmal dilatation. IMPRESSION: 1. No acute findings or significant change from prior exam. 2. Persistent biliary ductal dilatation. Reviewed, dictated and finalized at location R.
--- OUTSIDE RECORDS SUMMARY | 2025-01-25 20:53 | XMS_ITS | Encounter Summary ---
Author Organization [facility] Facility Care Team Providers Care College Scouting Coordinator Name Role Phone Prince Antunez MD Unavailable Snehal Gomez [facility] Unavailable [phone] Annamarie Gonzalez DO Primary Care Provider [phone] Javed Gomez MD Unavailable [phone] Encounter Details Date Type Department Care Team (Latest Contact Info) Description 06/18/2016 Orders Only [facility] CLINCONV ProviderFavian MD [address] [place] [address] Social History Tobacco Use Types Packs/Day Years Used Date Smoking Tobacco: Never Assessed Comments Unknown Sex and Gender Information Value Date Recorded Sex Assigned at Not on file Legal Sex Female 8:50 PM 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 PROSECUTION ATTORNEY Gender Identity Female 01/12/2019 12:44 PM CDT Sexual Orientation Straight 10/05/2019 11 :44 AM CDT documented as of this encounter Plan of Treatment Not on file documented as of this encounter Procedures Procedure Name Priority Date/Time Associated Diagnosis Comments SCAN - PATHOLOGY 06/23/2016 12:0 0 AM PATENT PROSECUTION ATTORNEY COLONOSCOPY - SCAN 06/18/2016 12 :00 AM PATENT PROSECUTION ATTORNEY documented in this encounter Results * SCAN - PATHOLOGY (06/23/2016 12:00 AM PATENT PROSECUTION ATTORNEY) Narrative 06/23/2016 12:00 AM PATENT PROSECUTION ATTORNEY Ordered by an unspecified provider. us Historical Provider MD Final Res ult * COLONOSCOPY - SCAN (06/18/2016 12:00 AM PATENT PROSECUTION ATTORNEY) Narrative 06/18/2016 12:00 AM PATENT PROSECUTION ATTORNEY Ordered by an unspecified provider. Historical Provider Final Res ult documented in this encounter Visit Diagnoses Not on filedocumented in this encounter Care Teams College Scouting Coordinator Relationship Specialty Start Date End Date Annamarie Gonzalez DO [address] [place] [address] [place] [address] PCP - General Internal Medicine 09/01/23 Prince Atnunez MD [address] [facility], [address] [address] Consulting Physician Pain Management 12/09/22 Snehal Gomez, [address] [place] [address] [employer] Truck Driver 04/14/23 04/15/23 Javed Gomez MD [id number] [place] [address] Surgeon Colon and Rectal Surgery 05/04/24 documented as of this encounter
--- OUTSIDE RECORDS SUMMARY | 2025-01-25 20:53 | XMS_ITS | Clinical Summary ---
Author Organization [facility] Address [address] [place] [address] Care Team Providers Care Gallery Or Museum Attendant Name Role Phone Arvin Kruger Jared DO Primary Care Provider + Source Comments [facility],non-owned Affiliates and Associated Physician Practices is amultiple site organization consisting of ambulatory clinics and hospital sitesin [place], [place], [place] and [place]. This disclosure is being madepursuant to the Care Everywhere program and may not contain all information available regarding this patient. 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 DIRECTOR Gender Identity Not on file Sexual Orientation Not on file Last Filed Vital Signs Vital Sign Reading Time Taken Comments Blood Pressure 162/77 01/08/2022 11:15 AM CDT Pulse 64 01/08/2022 11:15 AM CDT Temperature 36.7 C (98 F) 01/08/2022 11:15 AM CDT Respiratory Rate 16 01/08/2022 11:15 AM CDT Oxygen Saturation 99% 01/08/2022 11:15 AM CDT Inhaled Oxygen Concentration - - Weight 79.4 kg (175 lb) 01/08/2022 11:15 AM CDT Height 165.1 cm (5' 5) 01/08/2022 11:15 AM CDT Body Mass Index 29.12 01/08/2022 11:15 AM CDT Plan of Treatment Health Maintenance Due Date Last Done Comments BONE DENSITY TESTING 1959 COLOGUARD (AGES 45-75) - COLON CA SCREENING 1959 CT COLONOGRAPHY - COLON CA SCREENING 1959 FIT - COLON CA SCREENING 1959 FLEX SIG - COLON CA SCREENING 1959 LIPID TESTING 1959 MAMMOGRAM 1959 MEDICARE AWV 12 MONTHS 1959 HIV SCREENING 1974 HEPATITIS C SCREENING 02/13/1977 DTAP/TDAP/TD VACCINES (1 - Tdap) 1978 PAP SMEAR 02/19/1980 PNEUMOCOCCAL VACCINE 50+ (1 of 1 - PCV) 2009 ZOSTER VACCINE (1 of 2) 2009 DEPRESSION SCREENING 04/27/2024 COVID-19 VACCINE ( - season) 2024 01/30/2022, 08/08/2021, 02/02/2021, Additional history exists INFLUENZA VACCINE (#1) 2024 , 04/02/2021, 03/27/2021, Additional history exists COLON MONITORING 07/16/2032 07/16/2022 COLONOSCOPY - COLON CA SCREENING 07/16/2032 07/16/2022 Colorectal Cancer Screening 07/16/2032 Respiratory Syncytial Virus (RSV) Vaccine Pt: or over 60 yrs (1 - 1-dose 75+ series) 2034 HEPATITIS B VACCINE Aged Out No longe r eligible based on patient's age to complete this topic HIB VACCINE Aged Out No longer eligi ble based on patient's age to complete this topic HPV VACCINE Aged Out No longer eligi ble based on patient's age to complete this topic MENINGOCOCCAL (Group B) VACCINE SHARED DECISION-MAKING Aged Out No longer eligible based on patient's age to complete this topic MENINGOCOCCAL GROUPS A/C/Y/W VACCINE Aged Out No longer eligible based on patient's age to complete this topic Insurance MEDICARE Care Teams Gallery Or Museum Attendant Relationship Specialty Start Date End Date Arvin Kruger DO [address] [place] [id number] PCP - General Family Medicine 01/08/22
--- OUTSIDE RECORDS SUMMARY | 2025-01-25 20:53 | XMS_ITS | Clinical Summary ---
Author Organization [facility] at the [facility] Address [address] [place] [address] Care Team Providers Care Make Up Operator Helper Name Role Phone Prince Antunez MD Unavailable Annamarie Gonzalez DO Primary Care Provider [phone] Javed Gomez MD Unavailable [phone] Allergies Active Allergy Reactions Criticality Noted Date Comments Adhesive Blisters High 07/30/2018 Ampicillin Rash Medium 07/30/2018 Oxaprozin Nausea & Vomiting Low 07/28/2019 Iodinated Contrast Media Shortness of br eath,Chest tightness High 07/30/2018 Nalbuphine Anaphylaxis High 07/30/2018 Naproxen Nausea only Low 07/30/2018 Penicillin V Potassium Rash Medium 07/30/2018 Medications docusate sodium (Stool Softener) 100 mg capsule Take 1 capsule (100 mg total) by mouth 2 (two) times a day 60 capsule 1 Active Additional Information Patient taking differently:100 mg oral2 times daily PRN, constipation, Informant: Self, Reported on 06/17/2024 polyethylene glycol (MIRALAX) 17 gram packetIndication s:constipation Take 1 packet (17 g total) by mouth every other day 30 packet 11 1 Active Additional Information Patient taking differently:17 g oralAs needed, constipation, Indications: constipation, Informant: Self, Reported on 05/26/2024 amLODIPine (NORVASC) 5 mg tablet Take 1 tablet (5 mg total) by mouth daily 90 tablet 1 3 Active Additional Information Patient taking differently:5 mg oralDaily before breakfast, Indications: hypertension, Informant: Self, Reported on 06/17/2024 levothyroxine (SYNTHROID) 75 mcg tablet Take 1 tablet (75 mcg total) by mouth daily 90 tablet 1 3 Active Additional Information Patient taking differently:75 mcg oralDaily (early AM), Indications: hypothyroidism, Informant: Self, Reported on 06/17/2024 zolpidem (AMBIEN) 10 mg tabletIndication s:Insomnia, unspecified type Take 1 tablet (10 mg total) by mouth nightly as needed for sleep 90 tablet 1 3 Active Additional Information Patient taking differently:10 mg oralNightly, Informant: Self, Reported on 06/17/2024 simvastatin (ZOCOR) 20 mg tablet Take 1 tablet (20 mg total) by mouth daily 90 tablet 1 3 Active Additional Information Patient taking differently:20 mg oralNightly, Indications: hyperlipidemia, Informant: Self, Reported on 06/17/2024 lancets miscIndications: Body mass index 27.0-27.9, adult 1 each by other route daily 100 each 3 Active Additional Information Patient not taking.Reported on 05/04/2024 tenapanor (Ibsrela) 50 mg tabletIndication s:Constipation Predominant Irritable Bowel Syndrome Take 50 mg by mouth 2 (two) times a day Active ibuprofen 200 mg tab/cap Take 2 tablet/capsule (400 mg total) by mouth every 6 (six) hours as needed for pain Active gabapentin (NEURONTIN) 100 mg capsuleIndicatio ns:Restless Legs Syndrome Take 2 capsules (200 mg total) by mouth nightly Active TiZANidine (ZANAFLEX) 2 mg capsule Take 1-2 capsules (2-4 mg total) by mouth 3 (three) times a day as needed for muscle spasms Active Xtampza ER 13.5 mg capsule,sprinkle ,ER 12hr tmprrIndications :severe chronic pain requiring long-term opioid treatment Take 1 capsule by mouth every 12 (twelve) hours 4 Active diazePAM (VALIUM) 5 mg tablet Take 1 tablet (5 mg total) by mouth 2 (two) times a day 30 tablet 5 Active psyllium seed, sugar, powder Take 1 packet by mouth daily 822 g 5 Active Active Problems Problem Noted Date Diagnosed Date Elevated bilirubin 05/10/2024 Dilated cbd, acquired 05/10/2024 Anorectal pain 05/04/2024 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 Continue current treatment. Assessment & Plan (09/16/2022 3:43 PM CDT): New issue Add amlodipine 5 mg Muscle spasms of both lower extremities 06/18/19 Assessment & Plan (06/18/2022 1:16 PM HIM CLERK): Check a [facility] Sed rate Magnesium level Encounter for Medicare annual wellness exam 01/25 Assessment & Plan (04/14/2023 8:16 AM HIM CLERK): Meds reviewed and reconciled Assessment & Plan (02/11/2022 2:33 PM CDT): Chart reviewed Abnormal mammogram 02/11/2022 Assessment & Plan (12/17/2022 2:49 PM CDT): Will have mammogram January 21 Assessment & Plan (09/16/2022 3:38 PM CDT): She had to cancel her diagnostic mammogram and was not reschedule until November I am going to try to get this rescheduled sooner Assessment & Plan (02/11/2022 2:35 PM CDT): Workup continues Generalized anxiety disorder 08/21/2021 Assessment & Plan (09/16/2022 3:36 PM CDT): Has been having panic attacks Having trouble with neighbors Assessment & Plan (07/22/2022 10:40 AM CDT): Will need to wean xanax We can add atarax Assessment & Plan (06/18/2022 1:15 PM HIM CLERK): Patient is well controlled. Continue current treatment. Remains on xanax Assessment & Plan (02/11/2022 2:35 PM CDT): Patient is well controlled. Continue current treatment. Assessment & Plan (08/21/2021 1:11 PM CDT): Continues on xanax Full code status 10/03/2020 Assessment & Plan (02/11/2022 2:34 PM CDT): No new changes Assessment & Plan (10/03/2020 1:56 PM CDT): Discussed with patient approximately 20minutes End of life issues/Advanced Directives/Healthcare Surrogate. Discussed DNR. Encouraged to discuss further with family and consult tester sound or complete [place] approved form, which I would be glad to assist them with completion. All questions answered. polst form filled out and signed Depression, major, recurrent 11/15/2019 Assessment & Plan (01/27/2023 4:28 PM CDT): Patient is well controlled. Continue current treatment. Assessment & Plan (12/17/2022 2:48 PM CDT): stable Assessment & Plan (09/16/2022 3:39 PM CDT): On lexapro Chronic condition Not at goal Increase lexapro to 20 mg daily Assessment & Plan (06/18/2022 1:14 PM HIM CLERK): Chronic condition Remains on lexapro Assessment & Plan (02/11/2022 2:34 PM CDT): No new orders Assessment & Plan (08/21/2021 1:11 PM CDT): Patient is well controlled. Continue current treatment. Assessment & Plan (04/10/2021 12:27 PM HIM CLERK): Continue meds increase lexapro to 20 mg Assessment & Plan (11/15/2019 2:50 PM CDT): Add lexapro Anemia 11/15/2019 Assessment & Plan (09/16/2022 3:44 PM CDT): Had a colonoscopy Repeat cbc Assessment & Plan (02/11/2022 2:40 PM CDT): Worsening issue Will refer to G.I Cbc Chem 7 Assessment & Plan (04/10/2021 12:25 PM HIM CLERK): Recheck cbc See Dr. Kelley Needs a repeat colonoscopy Assessment & Plan (11/15/2019 2:56 PM CDT): Check lab Chronic constipation 11/04/2019 Assessment & Plan (04/10/2021 12:27 PM HIM CLERK): No new orders Assessment & Plan (11/04/2019 11:00 AM CDT): Due to her pain meds Discussed with the pt Stop oxycodone if possible Refer to pain management Chronic pain syndrome 03/28/2019 Assessment & Plan (01/27/2023 4:29 PM CDT): Cont current rx Assessment & Plan (12/17/2022 2:51 PM CDT): Will need to see second pain management group Wants a second opinion Discussed with her Assessment & Plan (09/16/2022 3:40 PM CDT): Chronic condition Will continue to wean her pain meds Offer of pain management is in place Assessment & Plan (07/22/2022 10:39 AM CDT): Can not take 2 narcotic meds Will stop oxycodone Assessment & Plan (06/18/2022 1:14 PM HIM CLERK): Chronic condition Not at goal Will order PT Continue current rx Assessment & Plan (03/24/2022 1:43 PM HIM CLERK): Cont rx No methadone See pain management Assessment & Plan (02/11/2022 2:34 PM CDT): Cont current rx Assessment & Plan (08/21/2021 1:12 PM CDT): On chronic pain meds I am attempting to refer to pain management Assessment & Plan (04/10/2021 12:25 PM HIM CLERK): Continue current meds Assessment & Plan (10/03/2020 1:57 PM CDT): Pain meds refilled Morphine and oxycodone nacan also ordered Assessment & Plan (01/03/2020 5:05 PM CDT): Continue No new orders Assessment & Plan (11/15/2019 2:50 PM CDT): Cont current pain meds Assessment & Plan (11/04/2019 10:54 AM CDT): No new orders Assessment & Plan (07/28/2019 2:51 PM CDT): Decrease xanax bid Assessment & Plan (07/12/2019 2:21 PM CDT): Patient is well controlled. Continue current treatment. Assessment & Plan (03/28/2019 12:19 PM HIM CLERK): Off demerol Told not making them anymore Refill demerol Dyslipidemia 06/30/2016 Assessment & Plan (03/24/2022 1:40 PM HIM CLERK): Patient is well controlled. Continue current treatment. Assessment & Plan (08/21/2021 1:13 PM CDT): Lipid profile and lft Assessment & Plan (04/10/2021 12:26 PM HIM CLERK): Continue rx Assessment & Plan (10/03/2020 1:57 PM CDT): Lipid profile lft Assessment & Plan (01/03/2020 5:04 PM CDT): Patient is well controlled. Continue current treatment. Assessment & Plan (11/04/2019 10:54 AM CDT): Patient is well controlled. Continue current treatment. Assessment & Plan (07/12/2019 2:21 PM CDT): Patient is well controlled. Continue current treatment. Assessment & Plan (02/02/2019 2:21 PM CDT): Patient is well controlled. Continue current treatment. Assessment & Plan (01/04/2019 4:28 PM CDT): Patient is well controlled. Continue current treatment. Assessment & Plan (09/30/2018 2:47 PM CDT): Patient is well controlled. Continue current treatment. Assessment & Plan (09/07/2018 9:29 AM CDT): Patient is well controlled. Continue current treatment. Hypothyroidism 06/30/2016 Assessment & Plan (01/27/2023 4:28 PM CDT): Patient is well controlled. Continue current treatment. Assessment & Plan (06/18/2022 1:15 PM HIM CLERK): Weight gain tsh and free t4 Assessment & Plan (08/21/2021 1:12 PM CDT): tsh Free t4 Assessment & Plan (04/10/2021 12:27 PM HIM CLERK): Check a tsh and free t4 Assessment & Plan (10/03/2020 1:58 PM CDT): Check a tsh and a free t4 Assessment & Plan (01/03/2020 5:05 PM CDT): Patient is well controlled. Continue current treatment. Assessment & Plan (11/15/2019 2:49 PM CDT): Patient is well controlled. Continue current treatment. Assessment & Plan (11/04/2019 10:54 AM CDT): Patient is well controlled. Continue current treatment. Assessment & Plan (07/12/2019 2:21 PM CDT): Patient is well controlled. Continue current treatment. Assessment & Plan (03/28/2019 12:20 PM HIM CLERK): Patient is well controlled. Continue current treatment. Assessment & Plan (01/04/2019 4:28 PM CDT): Patient is well controlled. Continue current treatment. Assessment & Plan (09/30/2018 2:47 PM CDT): Patient is well controlled. Continue current treatment. Assessment & Plan (09/07/2018 9:30 AM CDT): Continue current rx Resolved Problems Problem Noted Date Diagnosed Date Resolved Date Vertigo 01/03/2020 04/10/2021 Assessment & Plan (01/03/2020 5:06 PM CDT): Only occurs when outside and leans over Monitor Stay out of heat Update 1 week Call if worse add 11/04/2019 11/04/2019 Anxiety 11/04/2019 08/21/2021 Assessment & Plan (04/10/2021 12:27 PM HIM CLERK): Increase lexapro to 20 mg daily Assessment & Plan (11/04/2019 10:54 AM CDT): Add buspar Breast mass 01/04/2019 06/18/2022 Assessment & Plan (03/24/2022 1:43 PM HIM CLERK): Has appointment Assessment & Plan (02/11/2022 2:35 PM CDT): Workup underway Assessment & Plan (08/21/2021 1:12 PM CDT): Mammogram Pt did not get mammogram as ordered Assessment & Plan (04/10/2021 12:26 PM HIM CLERK): She is due for a mammogram. I will get this ordered. Assessment & Plan (07/12/2019 2:21 PM CDT): Has seen Dr. Saavedra Assessment & Plan (03/28/2019 12:18 PM HIM CLERK): Seeing Dr. Saavedra Assessment & Plan (02/02/2019 2:21 PM CDT): Refer to Dr. Saavedra Assessment & Plan (01/04/2019 4:35 PM CDT): Diagnostic mammogram Shoulder pain, left 09/07/2018 04/10/20 Assessment & Plan (09/30/2018 2:47 PM CDT): Will wait on any further workup Assessment & Plan (09/07/2018 9:28 AM CDT): Mri Depression 2016 11/15/2019 Assessment & Plan (02/02/2019 2:21 PM CDT): Patient is well controlled. Continue current treatment. Assessment & Plan (01/04/2019 4:27 PM CDT): Patient is well controlled. Continue current treatment. Immunizations Immunization Administration Dates Next Due Influenza, Quadrivalent, Spl it, Preservative Free, Intramuscular 01/27/2023 Influenza, Trivalent, IM (MDV) 02/17/2022 Influenza, Unspecified 04/02/2021,06/27/2019 Moderna SARS-CoV-2 Monovalen t Vaccination (12+ YRS) 08/08/2021,02/02/2021,01/05/2021 Moderna Sars-cov-2 Bivalent Vaccine 50 Mcg/0.5 mL (12+ YRS)-Blue/Bowling 01/30/2022 Td, adsorbed 12/25/2005 Tdap 06/27/2019 Surgical History Surgery Date Site/Laterality Comments HYSTERECTOMY 04/27/1984 - 04/26/1985 TUBAL LIGATION 04/27/1979 - 04/26/1980 CHOLECYSTECTOMY 04/27/1984 - 04/26/1985 FISTULA REPAIR 04/27/1989 - 04/26/1990 multiple CATARACT EXTRACTION, BILATERAL 11/25/2020 - 12/25/2020 Bilateral 12/28/2020 for left eye; 12/14/[address] Milagro Whitaker [phone] BREAST BIOPSY 04/27/2018 - 04/26/2019 Left COLON SURGERY 1986 SPINAL FUSION 04/27/1995 - 04/26/1996 OTHER SURGICAL HISTORY rectal flap/tears in rectum ESOPHAGOGASTRODUODENOSCOPY 04/27/2024 - 05/27/2024 Medical History Medical History Date Comments Hyperlipidemia Hypothyroidism Insomnia Migraine Pancreatic lesion Chronic midline back pain Depressive disorder Chronic night sweats Skin lesion Panic attack as reaction to stress patient has service dog Anemia Asthma Clotting disorder 1975 Cataract - -2020 Neuromuscular disorder Colon polyps Hypertension Anxiety History of transfusion Cholelithiasis Chronic constipation Liver disease Urinary tract infection Seizures (HCC) Family History Medical History Relation Name Comments Hearing loss Father Stevo Gillison Heart disease Father Stevo Gillison Hypertension Father Stevo Gillison Obesity Father Stevo Gillison Stroke Father Stevo Gillison Diabetes Maternal Grandfather Germaine Jenningsso n Stroke Maternal Grandmother Melina Gillison Arthritis Mother Juanis Gillison Asthma Mother Juanis Gillison COPD Mother Juanis Gillison Cancer Mother Juanis Gillison Depression Mother Juanis Gillison Diabetes Mother Juanis Gillison Heart attack Mother Juanis Gillison Heart disease Mother Juanis Gillison Hypertension Mother Juanis Weiss Lung cancer Mother Juanis Weiss Migraines Mother Juanis Weiss Obesity Mother Juanis Weiss lung cancer Mother Juanis Weiss Diabetes Sister 1 Linnea Garza Skin cancer Sister 1 Linnea Garza Anemia Sister 2 Elise Brookmann COPD Sister 2 Elise Brookmann Cancer Sister 2 Elise Brookmann Hearing loss Sister 2 Elise Brookmann Obesity Sister 2 Elise Brookmann COPD Sister 3 Devika Driscoll Cancer Sister 3 Devika Driscoll Depression Sister 3 Devika Drisocll Diabetes Sister 3 Devika Driscoll Heart attack Sister 3 Devika Driscoll Hypertension Sister 3 Devika Driscoll Obesity Sister 3 Devika Driscoll COPD Sister 4 Linnea Gillison Obesity Sister 4 Linnea Gillison Arthritis Son 1 1 Asthma Son 2 Eddie Roberto Relation Name Status Comments Father Stevo Weiss Maternal Grandfather Germaine Zavala Maternal Grandmother Melina Weiss Mother Juanis Weiss Sister 1 Linnea Garza Alive Sister 2 Elise Brookmann Sister 3 Devika Driscoll Sister 4 Linnea Gillison Son 1 1 Alive Son 2 Eddie Roberto Social History Tobacco Use Types Packs/Day Years Used Date Smoking Tobacco: Some Days Vaping Started: 2014 Smokeless Tobacco: Never Tobacco Cessation:Ready to Q uit: Not Asked; Counseling Given: Not Answered Alcohol Use Standard Drinks/Week Comments Never 0 (1 standard drink = 0.6 oz pur e alcohol) AUDIT-C Answer Date Recorded Q1: How often do you have a drink containing alc ohol? Monthly or less 06/17/2024 Q2: How many drinks containi ng alcohol do you have on a typical day when you are drinking? 1 or 2 06/17/2024 Q3: How often do you have si x or more drinks on one occasion? Never 06/17/2024 PHQ-2 Answer Date Recorded PHQ-2 Total Score (If total score is 3 or more points, staff should administer the PHQ-9) 2 04/14/2023 Personal Safety Answer Date Recorded Have you ever been in or are you currently in a harmful physical or emotional relationship or is someone making you feel afraid or unsafe? Denies 07/15/2024 Comments No Sex and Gender Information Value Date Recorded Sex Assigned at Not on file Legal Sex Female 8:50 PM HIM CLERK Gender Identity Female 01/12/2019 12:44 PM CDT Sexual Orientation Straight 10/05/2019 11 :44 AM CDT Obstetrics History Para Term AB IAB SAB Ectopic Multiple Livin g Live Births 1 1 1 Date Outcome GA Total Labor Labor/2nd/3rd Weight Sex Type Anes PTL Laury A1 A5 Name Clin Term Last Filed Vital Signs Vital Sign Reading Time Taken Comments Blood Pressure 120/77 09/14/2024 8:00 AM CDT Pulse 72 09/14/2024 8:00 AM CDT Temperature 36.9 C (98.4 F) 09/14/2024 8:00 AM CDT Respiratory Rate 18 07/15/2024 2:40 PM CDT Oxygen Saturation 97% 09/14/2024 8:00 AM CDT Inhaled Oxygen Concentration - - Weight 67.9 kg (149 lb 12.8 oz) 09/14/2024 8:00 AM CDT Height 165.1 cm (5' 5) 09/14/2024 8:00 AM CDT Body Mass Index 24.93 09/14/2024 8:00 AM CDT Plan of Treatment Health Maintenance Due Date Last Done Comments Osteoporosis Screening-Bone Density Scan 1959 Hepatitis B Screening 1977 Pneumococcal vaccine 65+ (1 of 2 - PCV) 1978 Zoster Vaccine (1 of 2) 2009 Depression Screening 04/14/2024 04/14/2023, 04/14/2023, 09/16/2022, Additional history exists Well Visit 65+ 04/14/2024 04/14/2023, 01/25, 10/03/2020, Additional history exists Breast Cancer Screening-Mammogram 08/31/2024 09/01/2023, 02/08/2022, 01/26/2019, Additional history exists Covid-19 Vaccine (2024-2 6 season) 2024 01/30/2022, 08/08/2021, 02/02/2021, Additional history exists Influenza Vaccine (#1) 2024 , 02/17/2022, 04/02/2021, Additional history exists Fall Risk Assessment 06/17/2025 06/17/2024, 04/14/2023, 02/11/2022, Additional history exists Colon Cancer Screening-Colonoscopy 07/17/2027 07/16/2022 DTaP/Tdap/Td Vaccine (2 - Td or Tdap) 06/26/2029 06/27/2019, 12/25/2005 Hepatitis C Screening Completed 02/11/2022 Colon Cancer Screening-CT Colonography Discontinued 07/16/2022 Colon Cancer Screening-DNA Stool Discontinued 07/17/19 Colon Cancer Screening-FIT Discontinued 07/16/2022 Colon Cancer Screening-Sigmoidoscopy Discontinued 07/16/2022 Procedures Procedure Name Priority Date/Time Associated Diagnosis Comments SCREENING MAMMOGRAM BILATERAL W ALEK Schedule Routine, Read Routine (OP Routine) 09/01/2023 1:33 PM CDT Screening mammogram, encounter for COLONOSCOPY Routine 07/16/2022 HEPATITIS C ANTIBODY Routine 02/11/2022 3:29 PM CDT Encounter for Medicare annual wellness exam Anemia, unspecified type from Last 3 Months or Most Recently Relevant to Health Maintenance Results * Screening Mammogram Bilateral W Alek (09/01/2023 1:33 PM CDT) Anatomical Region Laterality Modality Breast Bilateral Mammography Impressions 09/01/2023 2:20 PM CDT BI-RADS ATLAS category (overall): 1 - Negative There is no mammographic evidence of malignancy. A 1 year screening mammogram is recommended. The patient has been or will be contacted. We recommend annual screening mammography for women at average risk of breast cancer beginning at age 40, based on guidelines of the [employer] (ACR Practice Parameter for the Performance of Screening and Diagnostic Mammography) and [employer]. For women with and elevated risk of breast cancer, please refer to the ACR Practice Parameter for specific screening recommendations. The patient will be entered into a reminder system with a target due date of 1 year for her next screening exam. Narrative 09/01/2023 2:20 PM CDT Screening Mammogram Bilateral W Alek: 09/01/23 The study was acquired using full field digital technology and interpreted from soft copy. 2D digital mammographic views, as well as 3D digital tomosynthesis were performed in the CC and MLO projections. CLINICAL: Screening mammogram, encounter for. No relevant medical history has been documented for this patient. No known family history of breast cancer. COMPARISONS: 01/21/2023 Diagnostic Mammogram Right W Alek 02/08/2022 Screening Mammogram Bilateral W Alek 04/15/2019 US Guided Biopsy Sentinal Node Core Superficial Not FNA Breast Related 03/21/2019 US Breast Left Limited 01/26/2019 Diagnostic Mammogram Bilateral W Alek 01/26/2019 US Breast Left Limited 03/17/2016 Screening Mammogram Bilateral W Alek BREAST TISSUE: The breasts are heterogeneously dense, which may obscure small masses. FINDINGS: There is an unchanged biopsy marker clip in the left breast. There is no new suspicious finding in either breast on mammogram. Self Screening Mammogram IMG MAMMO PROCEDURES Fi nal Result * Colonoscopy (07/16/2022) Anatomical Region Laterality Modality Other Historical Provider MD ENDOSCOPY PROCEDURES Malaika l Result * Hepatitis C antibody (02/11/2022 3:29 PM CDT) Hep C Ab Nonreactive Nonreactive JIM REYES Comment: Interpretive Data Nonreactive: Antibodies to HCV not detected. Does NOT exclude the possibility of recent exposure to HCV. Equivocal: Equivocal for HCV antibodies. Supplemental molecular testing will be automatically performed to determine infection status in accordance with current CDC screening recommendations. Reactive: Positive for HCV antibodies. This may represent current or past HCV infection. Supplemental molecular testing will be automatically performed to determine current infection status in accordance with current CDC screening recommendations. Interpretive data was last revised on 2019. 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
--- OUTSIDE RECORDS SUMMARY | 2025-01-25 20:53 | XMS_ITS | Encounter Summary ---
Author Organization [facility] Facility Care Team Providers Care Air Battle Manager Name Role Phone Prince Antunez MD Unavailable Snehal Gomez [facility] Unavailable [phone] Annamarie Gonzalez DO Primary Care Provider [phone] Javed Gomez MD Unavailable [phone] Encounter Details Date Type Department Care Team (Latest Contact Info) Description 09/26/2016 Orders Only [facility] CLINCONV Provider, MD Favian [address] [place] [address] Social History Tobacco Use Types Packs/Day Years Used Date Smoking Tobacco: Never Assessed Comments Unknown Sex and Gender Information Value Date Recorded Sex Assigned at Not on file Legal Sex Female 8:50 PM TRANSLATOR Gender Identity Female 01/12/2019 12:44 PM CDT Sexual Orientation Straight 10/05/2019 11 :44 AM CDT documented as of this encounter Plan of Treatment Not on file documented as of this encounter Procedures Procedure Name Priority Date/Time Associated Diagnosis Comments SCAN - LABS 09/26/2016 12:00 AM CDT SCAN - LABS 09/26/2016 12:00 AM CDT documented in this encounter Results * SCAN - LABS (09/26/2016 12:00 AM CDT) Narrative 09/26/2016 12:00 AM CDT Ordered by an unspecified provider. us Historical Provider Final Res ult * SCAN - LABS (09/26/2016 12:00 AM CDT) Narrative 09/26/2016 12:00 AM CDT Ordered by an unspecified provider. us Historical Provider Final Res ult documented in this encounter Visit Diagnoses Not on filedocumented in this encounter Care Teams Air Battle Manager Relationship Specialty Start Date End Date Annamarie Gonzalez DO [address] [place], [place] [address] [address] PCP - General Internal Medicine 09/01/23 Prince Antunez MD [facility] [address] Consulting Physician Pain Management 12/09/22 Snehal Gomez, PRODUCT SUPPORT SALES REPRESENTATIVE[address] [place] [address] Political Cartoonist 04/14/23 04/15/23 Javed Gomez MD [phone] [place] [address] Surgeon Colon and Rectal Surgery 05/04/24 documented as of this encounter
[2025-01-25 20:57] VITALS: BP 154/70; PULSE 73; RESP 14; TEMP 36.7; O2SAT 99
[2025-01-25 22:35] VITALS: BP 118/56; PULSE 70; RESP 16; O2SAT 100
--- NOTE | 2025-01-25 22:43 | ED.FEMALEGU ---
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 Reports recent surgery due to anal fissures with Dr. Alex Wise. Reports swelling, redness of the rectum. Also reports swelling, redness, pain in the vaginal area. She is currently taking cefdinir and a Medrol Dosepak. Related Data Allergies Allergy/AdvReac Type Severity Reaction Status Date / Time Iodinated Contrast Media Allergy Severe Anaphylaxis Verified 01/25/25 20:56 nalbuphine Allergy Severe Rash Verified 01/25/25 20:56 adhesive Allergy Intermediate Rash Verified 01/25/25 20:56 ampicillin Allergy Intermediate Rash Verified 01/25/25 20:56 naproxen Allergy Intermediate Nausea Verified 01/25/25 20:56 penicillin V Allergy Intermediate Rash Verified 01/25/25 20:56 oxaprozin (From Daypro) AdvReac Intermediate Nausea and Verified 01/25/25 20:56 Vomiting Review of Systems Review of Systems: All systems reviewed & are unremarkable except as noted in HPI and below Exam Narrative: GENERAL: Well-appearing, well-nourished, and in no acute distress. HEAD: Normocephalic, atraumatic. EYES: EOMI. CHEST: No respiratory distress. HEART: Regular rate EXTREMITIES: Normal range of motion. No edema. SKIN: Warm, dry, no rash. NEURO: No focal deficits. Alert and oriented x3. PSYCH: Normal mood and affect RECTAL: No notable erythema, edema of the rectum FEMALE GENITAL: Mild redness about the vaginal introitus Course Vital Signs Vital signs: Vital Signs Temperature 98.1 F 01/25/25 20:57 Pulse Rate 73 01/25/25 20:57 Respiratory Rate 14 01/25/25 20:57 Blood Pressure 154/70 H 01/25/25 20:57 Pulse Oximetry 99 01/25/25 20:57 Oxygen Delivery Room Air 01/25/25 20:57 Temperature 98.1 F 01/25/25 20:57 Pulse Rate 70 01/25/25 22:35 Respiratory Rate 16 01/25/25 22:35 Blood Pressure 118/56 L 01/25/25 22:35 Pulse Oximetry 100 01/25/25 22:35 Oxygen Delivery Room Air 01/25/25 20:57 MDM - Female Genitourinary MDM Narrative Medical decision making narrative: Patient presents to the ER for vaginal pain, irritation. Also reporting rectal pain. Recent sphincterotomy for anal fissures. She is afebrile and nontoxic appearing. Her vitals are stable. CBC with mild leukocytosis to 10.9. Patient's is currently on a Medrol Dosepak. Metabolic panel without concerning findings. Urine without evidence of infection. Patient given dose of fluconazole for possible vaginal candidiasis. CT abdomen and pelvis without acute findings. Patient updated on her workup and agrees with plan of care. Instructed to have further follow-up with her colorectal surgeon. She was given warnings to return to the ER Differential Diagnosis Differential diagnosis: Likely urinary tract infection, vaginitis and other (fahad-rectal abscess, fissure, hemorrhoid) Lab Data Attestation: I reviewed the patient's lab results. 01/25/25 22:57 01/25/25 22:57 Labs: Lab Results 01/25/25 01/25/25 Range/Units 22:53 22:57 WBC 10.9 H (4.5-10.0) K/mm3 RBC 4.12 L (4.2-5.4) M/mm3 Hgb 12.8 (12.0-15.0) g/dL Hct 38.5 (37.0-47.0) % MCV 93.4 (80-100) fl MCH 31.1 (26-34) pg MCHC 33.2 (32-36) g/dl RDW 12.4 (11.5-14.5) % Plt Count 281 (150-375) k/mm3 MPV 9.3 (7.4-10.4) fl Immature Gran % (Auto) 1.0 H (0-0.5) % Neut % (Auto) 85.4 H (45.5-73.1) % Lymph % (Auto) 7.8 L (18.3-44.2) % Telfair % (Auto) 5.6 (2.6-8.5) % Eos % (Auto) 0.0 (0-4.4) % Baso % (Auto) 0.2 (0.2-1.2) % Lymph # (Auto) 0.85 L (0.9-3.2) K/mm3 Telfair # (Auto) 0.6 (0.1-0.6) K/mm3 Eos # (Auto) 0.0 (0-0.3) K/mm3 Baso # (Auto) 0.0 (0.0-0.1) K/mm3 Abs Immat Gran (auto) 0.11 H (0.00-0.031) K/mm3 Absolute Neuts (auto) 9.4 H (1.3-6.7) K/mm3 Absolute Nucleated RBC 0.000 (0.0-0.012) K/mm3 Nucleated RBC % 0.0 (0.0-0.2) % Sodium 139 (137-145) mmol/L Potassium 3.8 (3.4-5.0) mmol/L Chloride 101 (98-107) mmol/L Carbon Dioxide 29 (22-30) mmol/L Anion Gap 9 (4-12) mmol/L BUN 14 (7-17) mg/dL Creatinine 0.73 (0.7-1.0) mg/dL Estim Creat Clear Calc 60 ml/min Estimated GFR > 60 (59 - ) Glucose 134 H (65-110) mg/dL Calcium 9.4 (8.4-10.2) mg/dL Total Bilirubin 1.5 H (0.2-1.3) mg/dL AST 22 (14-36) U/L ALT 21 (6-35) U/L Alkaline Phosphatase 59 (38-126) U/L Total Protein 8.0 (6.3-8.2) g/dL Albumin 4.9 (3.5-5.1) g/dL Urine Color Yellow (Yellow) Urine Appearance Clear (Clear) Urine pH 7.0 (5.0-9.0) Ur Specific Moriarty 1.005 (1.001-1.035) Urine Protein Negative (Negative) mg/dL Urine Glucose (UA) Negative (Negative) mg/dL Urine Ketones Negative (Negative) mg/dL Ur Blood (Man) Trace (Negative) Urine Nitrate Negative (Negative) Urine Bilirubin Negative (Negative) Urine Urobilinogen 0.2 (<2.0) mg/dL Leukocyte Esterase Rfl Negative (Negative) SHRUTHI/UL Urine RBC 0-2 (0-2) /hpf Urine WBC 0-5 (0-3) /hpf Ur Squamous Epith Cells None seen (Few) /hpf Urine Bacteria None seen /hpf Urine Casts 0-2 Imaging Data Radiologist's impression: CT abd/pelvis: No acute intra-abdominal abnormality Critical Care Time Critical Care Time Critical Care Time: No Discharge Plan Discharge Clinical Impression: Pain in rectum, Vulvovaginal candidiasis Patient Disposition: Home Condition: Stable Instructions: Yeast Infection (ED), Rectal Pain (ED) Additional Instructions: Return to the ER if you experience fever, abdominal pain with nausea and vomiting, you are unable to keep down liquids or solids, blood in the stool, pain or burning with urination, blood in the urine or any other symptoms that are concerning to you Remain well hydrated. Finish antibiotic and medrol dose pack as prescribed Follow up with your surgeon Patient Language: Macedonian Follow-up/Referrals: Carlos,Annamarie Crowley, DO [Primary Care Provider, Unknown]
--- OUTSIDE RECORDS SUMMARY | 2025-01-25 23:03 | XMS_ITS | Encounter Summary ---
Author Organization [facility] Facility Care Team Providers Care Sailboat Captain Name Role Phone Prince Antunez MD Unavailable Snehal Gomez [facility] Unavailable [phone] Annamarie Gonzalez DO Primary Care Provider [phone] Javed Gomez MD Unavailable [phone] Encounter Details Date Type Department Care Team (Latest Contact Info) Description 06/18/2016 Orders Only [facility] CLINCONV ProviderFavian MD [address] [place] [address] Social History Tobacco Use Types Packs/Day Years Used Date Smoking Tobacco: Never Assessed Comments Unknown Sex and Gender Information Value Date Recorded Sex Assigned at Not on file Legal Sex Female 8:50 PM PRESCHOOL SPECIAL EDUCATION TEACHER Gender Identity Female 01/12/2019 12:44 PM CDT Sexual Orientation Straight 10/05/2019 11 :44 AM CDT documented as of this encounter Plan of Treatment Not on file documented as of this encounter Procedures Procedure Name Priority Date/Time Associated Diagnosis Comments SCAN - PATHOLOGY 06/23/2016 12:0 0 AM PRESCHOOL SPECIAL EDUCATION TEACHER COLONOSCOPY - SCAN 06/18/2016 12 :00 AM PRESCHOOL SPECIAL EDUCATION TEACHER documented in this encounter Results * SCAN - PATHOLOGY (06/23/2016 12:00 AM PRESCHOOL SPECIAL EDUCATION TEACHER) Narrative 06/23/2016 12:00 AM PRESCHOOL SPECIAL EDUCATION TEACHER Ordered by an unspecified provider. us Historical Provider MD Final Res ult * COLONOSCOPY - SCAN (06/18/2016 12:00 AM PRESCHOOL SPECIAL EDUCATION TEACHER) Narrative 06/18/2016 12:00 AM PRESCHOOL SPECIAL EDUCATION TEACHER Ordered by an unspecified provider. Historical Provider Final Res ult documented in this encounter Visit Diagnoses Not on filedocumented in this encounter Care Teams Sailboat Captain Relationship Specialty Start Date End Date Annamarie Gonzalez DO [address] [place] [address] [place] [address] PCP - General Internal Medicine 09/01/23 Prince Antunez MD [address] [facility], [address] [address] Consulting Physician Pain Management 12/09/22 Snehal Gomez, [address] [place] [address] Commissioned Security Officer 04/14/23 04/15/23 Javed Gomez MD [phone] [place] [address] Surgeon Colon and Rectal Surgery 05/04/24 documented as of this encounter
--- OUTSIDE RECORDS SUMMARY | 2025-01-25 23:03 | XMS_ITS | Clinical Summary ---
Author Organization [facility] Address [address] [place] [address] Care Team Providers Care Dive Master Name Role Phone Prince Antunez MD Unavailable Annamarie Gonzalez DO Primary Care Provider [phone] Javed Gomez MD Unavailable [phone] Allergies Active Allergy Reactions Criticality Noted Date [...] 04/14/2023 Assessment & Plan (04/14/2023 8:17 AM BRYOLOGIST): New issue Check a iron level Primary hypertension 09/16/2022 Assessment & Plan (01/27/2023 4:28 PM CDT): Patient is well controlled. Continue current treatment. Assessment & Plan (09/16/2022 3:43 PM CDT): New issue Add amlodipine 5 mg Muscle spasms of both lower extremities 06/18/19 Assessment & Plan (06/18/2022 1:16 PM BRYOLOGIST): Check a [facility] Sed rate Magnesium level Encounter for Medicare annual wellness exam 01/25 Assessment & Plan (04/14/2023 8:16 AM BRYOLOGIST): Meds reviewed and reconciled Assessment & Plan [...] atarax Assessment & Plan (06/18/2022 1:15 PM BRYOLOGIST): Patient is well controlled. Continue current treatment. [...] to discuss further with family and consult attorney at law or complete [place] approved form, which I [...] daily Assessment & Plan (06/18/2022 1:14 PM BRYOLOGIST): Chronic condition Remains on lexapro Assessment & Plan (02/11/2022 2:34 PM CDT): No new orders Assessment & Plan (08/21/2021 1:11 PM CDT): Patient is well controlled. Continue current treatment. Assessment & Plan (04/10/2021 12:27 PM BRYOLOGIST): Continue meds increase lexapro to 20 mg Assessment & Plan (11/15/2019 2:50 PM CDT): Add lexapro Anemia 11/15/2019 Assessment & Plan (09/16/2022 3:44 PM CDT): Had a colonoscopy Repeat cbc Assessment & Plan (02/11/2022 2:40 PM CDT): Worsening issue Will refer to G.I Cbc Chem 7 Assessment & Plan (04/10/2021 12:25 PM BRYOLOGIST): Recheck cbc See Dr. Kelley Needs a repeat colonoscopy Assessment & Plan (11/15/2019 2:56 PM CDT): Check lab Chronic constipation 11/04/2019 Assessment & Plan (04/10/2021 12:27 PM BRYOLOGIST): No new orders Assessment & Plan (11/04/2019 [...] oxycodone Assessment & Plan (06/18/2022 1:14 PM BRYOLOGIST): Chronic condition Not at goal Will order PT Continue current rx Assessment & Plan (03/24/2022 1:43 PM BRYOLOGIST): Cont rx No methadone See pain management Assessment & Plan (02/11/2022 2:34 PM CDT): Cont current rx Assessment & Plan (08/21/2021 1:12 PM CDT): On chronic pain meds I am attempting to refer to pain management Assessment & Plan (04/10/2021 12:25 PM BRYOLOGIST): Continue current meds Assessment & Plan (10/03/2020 [...] treatment. Assessment & Plan (03/28/2019 12:19 PM BRYOLOGIST): Off demerol Told not making them anymore Refill demerol Dyslipidemia 06/30/2016 Assessment & Plan (03/24/2022 1:40 PM BRYOLOGIST): Patient is well controlled. Continue current treatment. Assessment & Plan (08/21/2021 1:13 PM CDT): Lipid profile and lft Assessment & Plan (04/10/2021 12:26 PM BRYOLOGIST): Continue rx Assessment & Plan (10/03/2020 1:57 [...] treatment. Assessment & Plan (06/18/2022 1:15 PM BRYOLOGIST): Weight gain tsh and free t4 Assessment & Plan (08/21/2021 1:12 PM CDT): tsh Free t4 Assessment & Plan (04/10/2021 12:27 PM BRYOLOGIST): Check a tsh and free t4 Assessment [...] treatment. Assessment & Plan (03/28/2019 12:20 PM BRYOLOGIST): Patient is well controlled. Continue current treatment. [...] 08/21/2021 Assessment & Plan (04/10/2021 12:27 PM BRYOLOGIST): Increase lexapro to 20 mg daily Assessment & Plan (11/04/2019 10:54 AM CDT): Add buspar Breast mass 01/04/2019 06/18/2022 Assessment & Plan (03/24/2022 1:43 PM BRYOLOGIST): Has appointment Assessment & Plan (02/11/2022 2:35 PM CDT): Workup underway Assessment & Plan (08/21/2021 1:12 PM CDT): Mammogram Pt did not get mammogram as ordered Assessment & Plan (04/10/2021 12:26 PM BRYOLOGIST): She is due for a mammogram. I will get this ordered. Assessment & Plan (07/12/2019 2:21 PM CDT): Has seen Dr. Saavedra Assessment & Plan (03/28/2019 12:18 PM BRYOLOGIST): Seeing Dr. Saavedra Assessment & Plan (02/02/2019 [...] eye; 12/14/[address] Milagro Whitaker [phone] BREAST BIOPSY 04/27/2018 - 04/26/2019 Left COLON [...] 3 Devika Driscoll Depression Sister 3 Devika Driscoll Diabetes Sister 3 Devika Driscoll Heart attack [...] on file Legal Sex Female 8:50 PM BRYOLOGIST Gender Identity Female 01/12/2019 12:44 PM CDT [...] age 40, based on guidelines of the [employer] (ACR Practice Parameter for the Performance of Screening and Diagnostic Mammography) and [employer]. For women [...] - GENER AL ORDERABLES Final Result KRYSTYNARACHELLE [address] [facility] [place] [address] from Last 3 Months or Most Recently Relevant to Health Maintenance Insurance [facility] Advance Directives For more information, please contact: [phone] Documents on File Type Date Recorded Patient Spring Former Expl anation ADVANCE DIRECTIVE 10/03/2020 * Full Code (Latest Code Status on File) Date Activated Date Inactivated Comments 05/23/2024 9:40 AM 05/23/2024 3:59 PM Care Teams Dive Master Relationship Specialty Start Date End Date Annamarie Gonzalez DO [address] [facility], [address] [address] PCP - General Internal Medicine 09/01/23 Prince Antunez MD [address] [facility] [address] Consulting Physician Pain Management 12/09/22 Javed Gomez MD [address] [phone] [place] [address] Surgeon Colon and Rectal Surgery 05/04/24
--- OUTSIDE RECORDS SUMMARY | 2025-01-25 23:03 | XMS_ITS | Encounter Summary ---
Author Organization [facility] Facility Care Team Providers Care Executive Cyber Leader Name Role Phone Prince Antunez MD Unavailable Snehal Gomez [facility] Unavailable [phone] Annamarie Gonzalez DO Primary Care Provider [phone] Javed Gomez MD Unavailable [phone] Encounter Details Date Type Department Care Team (Latest Contact Info) Description 09/26/2016 Orders Only MMG CLINCONV Provider, MD Favian [address] [place] [address] Social History Tobacco Use Types Packs/Day Years Used Date Smoking Tobacco: Never Assessed Comments Unknown Sex and Gender Information Value Date Recorded Sex Assigned at Not on file Legal Sex Female 8:50 PM CANNON PINION ADJUSTER Gender Identity Female 01/12/2019 12:44 PM CDT [...] on filedocumented in this encounter Care Teams Executive Cyber Leader Relationship Specialty Start Date End Date Annamarie Gonzalez DO [address] [place], [place] [address] [address] PCP - General Internal Medicine 09/01/23 Prince Antunez MD [facility] [address] Consulting Physician Pain Management 12/09/22 Snehal Gomez, BELLSTAFF[address] [place] [address] Critical Care Unit Nurse 04/14/23 04/15/23 Javed Gomez MD [address] [phone] [place] [address] Surgeon Colon and Rectal Surgery 05/04/24 documented as of this encounter
--- OUTSIDE RECORDS SUMMARY | 2025-01-25 23:03 | XMS_ITS | Clinical Summary ---
Author Organization [facility] Address [address] [facility] [place] [place] [address] Care Team Providers Care Human Resources Mgr Name Role Phone Arvin Kruger Jared DO Primary Care Provider + Source Comments [facility],non-owned Affiliates and Associated Physician Practices is amultiple site organization consisting of ambulatory clinics and hospital sitesin [place], [place], [place] and [place]. This disclosure is being madepursuant to the Care Everywhere program and may not contain all information available regarding this patient. Last updated 18.[facility] Allergies Active Allergy Reactions Criticality Noted Date Comments Naproxen Unknown 01/08/2022 Penicillins Unknown 01/08/2022 Social History Tobacco Use Types Packs/Day Years Used Date Smoking Tobacco: Never Assessed Comments Unknown Sex and Gender Information Value Date Recorded Sex Assigned at Not on file Legal Sex Female 6:33 AM DRY CLEANER HELPER Gender Identity Not on file Sexual Orientation [...] complete this topic Insurance MEDICARE Care Teams Human Resources Mgr Relationship Specialty Start Date End Date Arvin Kruger DO [address] [facility] [place] [id number] PCP - General Family Medicine 01/08/22
[2025-01-25 23:04] LABS: Hematocrit 38.5 % (37.0-47.0); Hemoglobin 12.8 g/dL (12.0-15.0); Immature Granulocyte Percent A 1.0 % (0-0.5); Lymphocytes Absolute Auto 0.85 K/mm3 (0.9-3.2); Mean Corpuscular HGB Conc 33.2 g/dl (32-36); Mean Corpuscular Hemoglobin 31.1 pg (26-34); Mean Corpuscular Volume 93.4 fl (80-100); Nucleated Red Blood Cells Absolute Auto 0.000 K/mm3 (0.0-0.012); Nucleated Red Blood Cells Perc 0.0 % (0.0-0.2); Platelet Count Result 281 k/mm3 (150-375); Red Blood Count 4.12 M/mm3 (4.2-5.4); White Blood Count 10.9 K/mm3 (4.5-10.0)
[2025-01-25 23:16] LABS: Alanine Aminotransferase 21 U/L (6-35); Albumin Level 4.9 g/dL (3.5-5.1); Alkaline Phosphatase 59 U/L (38-126); Anion Gap 9 mmol/L (4-12); Aspartate Amino Transferase 22 U/L (14-36); Bilirubin,Total 1.5 mg/dL (0.2-1.3); Blood Urea Nitrogen 14 mg/dL (7-17); Calcium 9.4 mg/dL (8.4-10.2); Carbon Dioxide 29 mmol/L (22-30); Chloride 101 mmol/L (98-107); Estimated CRCL calculation 60 ml/min; Estimated Glomerular Filt Rate > 60; Glucose 134 mg/dL (65-110); Potassium 3.8 mmol/L (3.4-5.0); Sodium 139 mmol/L (137-145); Total Protein 8.0 g/dL (6.3-8.2)
[2025-01-25 23:21] LABS: Add Urine Microscopic? YES; Appearance Urine Clear (Clear); Glucose Urine UA Negative (Negative); Leukocyte Esterase Ur Negative LEU/UL (Negative); Nitrate Urine Negative (Negative); Non Pathogenic Casts 0-2; Specific Grav Ur 1.005 (1.001-1.035)
[2025-01-26] MEDS: FLUCONAZOLE 150 MG TABLET PO (00:53)
== END 2025-01-26 01:20 | disposition home or self-care (01) ==
PROVIDERS: Emergency Provider Physician Assistant; PCP Internal Medicine
DX: B37.31 Acute candidiasis of vulva and vagina (principal); K62.89 Other specified diseases of anus and rectum; Z98.890 Other specified postprocedural states
CPT/HCPCS: 36415; 74176; 80053; 81001; 85025; 99284; A9270